=== PATIENT | female | born 1995 | race American Indian/Alaskan Native ===

== ENCOUNTER 2019-09-11 19:31 | Emergency (ER) | payer MEDICAID ==
--- NOTE | 2019-09-11 20:26 | EDM.PDOC ---
ED HPI GENERAL MEDICAL PROBLEM - General Chief Complaint: ENT Problem Stated Complaint: TOOTH PAIN TOP LEFT Time Seen by Provider: 09/11/19 20:10 Source of Information: Reports: Patient History Limitations: Reports: No Limitations - History of Present Illness INITIAL COMMENTS - FREE TEXT/NARRATIVE: 24-year-old female with dental pain on the left maxillary molars. It is been hurting since 3:00, she has a known deep posterior caries which was to be repaired in the last couple weeks but she missed her dental appointment because she "did not have a ride". It started hurting again today. No swelling or fever. Onset: Sudden (Started fairly suddenly 4 hours ago) Associated Symptoms: Reports: No Other Symptoms Treatments TITLE CLOSER: Reports: Acetaminophen, NSAIDS Left Upper Tooth/Teeth Pain Score (Numeric/FACES): 10 - Related Data Allergies Allergy/AdvReac Type Severity Reaction Status Date / Time amoxicillin Allergy Rash Verified 09/11/19 20:08 Home Meds: Home Meds FLUoxetine HCl [Fluoxetine HCl] 40 mg PO DAILY 09/11/19 [History] hydrOXYzine HCL [Hydroxyzine HCl] 50 mg PO DAILY 09/11/19 [History] Past Medical History HEENT History: Reports: Impaired Vision [employer] History: Reports: Musculoskeletal History: Reports: Fracture Other Musculoskeletal History: r wrist fx Neurological History: Reports: Seizure Psychiatric History: Reports: Anxiety, Depression Social & Family History - Family History Family Medical History: Noncontributory - Tobacco Use Smoking Status *Q: Current Every Day Smoker Years of Tobacco use: 11 Packs/Tins Daily: 1.5 - Caffeine Use Caffeine Use: Reports: Coffee, Soda - Recreational Drug Use Recreational Drug Use: Yes Recreational Drug Type: Reports: Marijuana/Hashish ED ROS ENT - Review of Systems Review Of Systems: See Below Constitutional: Denies: Fever, Chills Respiratory: Denies: Shortness of Breath Cardiovascular: Denies: Chest Pain GI/Abdominal: Denies: Nausea, Vomiting Neurological: Denies: Headache ED EXAM, ENT - Physical Exam Exam: See Below Exam Limited By: No Limitations General Appearance: Alert, No Apparent Distress (Looks uncomfortable but not distressed) Mouth/Throat: Other ( she has significant decay posteriorly of the second molar of the maxillary left side, the tooth is tender to percussion. No significant gingival erythema or swelling. She also has several other teeth with advanced dental decay.) Course - Vital Signs Last Recorded V/S: Last Vital Signs Temp 98.3 F 09/11/19 20:05 Pulse 86 09/11/19 20:05 Resp 18 09/11/19 20:05 BP 164/83 H 09/11/19 20:05 Pulse Ox 100 09/11/19 20:05 - Re-Assessments/Exams Free Text/Narrative Re-Assessment/Exam: 09/11/19 20:26 Patient be placed on penicillin 500 4 times a day, given 30 naproxen to take up to 3 times daily, and needs to call her dentist tomorrow to get an appointment. She can return to ER if worsening such as swelling or fever despite being on the antibiotic. Departure - Departure Time of Disposition: 20:35 Disposition: Home, Self-Care 01 Clinical Impression: Dental abscess - Discharge Information Instructions: Preventive Dental Care, Adult Referrals: PCP,None [Primary Care Provider] - Forms: ED Department Discharge Care Plan Goals: Take antibiotic 4 times a day until gone, take 1 naproxen up to 3 times daily. Recheck at a dentist office as soon as possible, return if worsening despite antibiotics such as fever or significant facial swelling. Sepsis Event Note - Evaluation Sepsis Screening Result: No Definite Risk - Focused Exam Vital Signs: Vital Signs Temp Pulse Resp BP Pulse Ox 09/11/19 20:05 98.3 F 86 18 164/83 H 100 Date Exam was Performed: 09/11/19 Time Exam was Performed: 20:44
== END 2019-09-11 20:42 | disposition home or self-care (01) ==
LOC: JP.ED 19:31
DX: K04.7 Periapical abscess without sinus (principal); F32.9 Major depressive disorder, single episode, unspecified; F17.210 Nicotine dependence, cigarettes, uncomplicated; Z88.0 Allergy status to penicillin; Z79.899 Other long term (current) drug therapy
CPT/HCPCS: 99282; 99283